=== PATIENT | male | born 1995 ===

== ENCOUNTER 2021-12-13 21:42 | Emergency (ER) | payer BC, SELFPAY ==
--- OUTSIDE RECORDS SUMMARY | 2021-12-13 21:45 | XMS REPORT | Continuity of Care Document ---
:1995 Author Organization [facility] t Address [address] [place] [address] Care Team Providers Name Role Phone No MD, Pcp Primary Care Physician Unavailable LUIS ARMANDO LIN Attending Clinician Unavailable Doctor Unassigned, [place] Attending Clinician Unavailable Ramez Suggs Attending Clinician Chicho Romero MD Attending Clinician CHICHO ROMERO Attending Clinician Unavailable Payers Payer Name Policy Type Policy Number Effective Date Expiration Date Iveth BEAN OPEN ACCESS [id number] 2021 00:00:00 MANAGED CHOICE POS Problems Condition Condition Condition Status Onset Resolution Last Treating Co mments Source Name Details Category Date Date Treatment Clinician Date Laceration Laceration Disease Active U T of muscle of muscle 07-12 Heal th of left of left 00:00: hand hand 00 No known No known Disease Unive rs active active ity of problems problems [facility] Allergies, Adverse Reactions, Alerts Allergy Allergy Status Severity Reaction(s) Onset Inactive Treating Comm ents Source Name Type Date Date Clinician NO KNOWN Drug Active Univers ALLERGIE Class ity of S [facility] Social History Social Habit Start Date Stop Date Quantity Comments Source Exposure to Not sure [facility] [place] [facility] SARS-CoV-2 (event) History of Cigarette Smoker Universi ty of tobacco use [facility] Tobacco use and 2021-07-12 2021-07-12 Smokeless tobacco [facility] [place] [facility] exposure 00:00:00 00:00:00 non-user Alcohol intake 2021-07-12 2021-07-12 [facility] 00:[facility]:00 00:00:00 History [facility] 2018-09-24 2018-09-24 3 University o f Alcohol Frequency 00:00:00 00:00:00 [facility] History [facility] 2018-09-24 2018-09-24 2 University o f Alcohol Std 00:00:00 00:00:00 [facility] History [facility] 2018-09-24 2018-09-24 2 [place] o f Alcohol Binge 00:00:00 00:00:00 [facility] al Branch Sex Assigned At [birth year] [facility] 00:00:00 00:00:00 Smoking Status Start Date Stop Date Source Never smoked tobacco [facility] [place] [facility] Current every day smoker 2019-08-24 00:00:00 Uni versity of [facility] Medications Ordered Filled Start Stop Current Ordering Indication Dosage Frequency Signature Comments Components Source Medication Medication Date Date Medication? Clinician (SIG) Name Name No known No No known [place] medications 07-12 medication He alth 15:33: s 36 methylPREDN Yes [id number] 84mg Take 21 Univers ISolone 5-13 tablets by ity of (MEDROL, 00:00: mouth [place] SYDNEY,) 4 mg 00 SEE-INSTRU Med ical tablets CTIONS. Branch follow package directions methylPREDN 2019-0 Yes [id number] 84mg Take 21 Univers ISolone 5-13 tablets by ity of (MEDROL, 00:00: mouth [place] SYDNEY,) 4 mg 00 SEE-INSTRU Med ical tablets CTIONS. Branch follow package directions methylPREDN 2019-0 Yes [id number] 84mg Take 21 Univers ISolone 5-13 tablets by ity of (MEDROL, 00:00: mouth [place] SYDNEY,) 4 mg 00 SEE-INSTRU Med ical tablets CTIONS. Branch follow package directions diclofenac 2019- 2020- No [id number] 75mg Take 1 Univers 75 mg EC 5-13 06-13 tablet by ity o f tablet 00:00: 04:59 mouth 2 [place] 00 :00 (two) Medical times [place] daily with meals for 30 days. diclofenac 2020- 2020- No [id number] 75mg Take 1 Univers 75 mg EC 5-13 06-13 tablet by ity o f tablet 00:00: 04:59 mouth 2 [place] 00 :00 (two) Medical times [place] daily with meals for 30 days. hydrocortis Yes [id number] 25mg Insert 1 Univers one 6-13 Suppositor ity of (ANUSOL-HC) 00:00: y [place] 25 mg 00 rectum 2 Medical suppository (two) Branch times daily. phenyleph-m Yes [id number] Apply to Univers in 13 affected ity of oil-petrola 00:00: area twice [place] nadia 00 a day Medical (PREPARATIO Branch N H) 0.25-14-74. 9 % Oint docusate 20190 Yes [id number] 100mg Take 1 Un doug (COLACE) 6-13 capsule by ity o f 100 mg 00:00: mouth [place] capsule 00 daily. Medical Branch hydrocortis Yes [id number] 25mg Insert 1 Univers one 6-13 Suppositor ity of (ANUSOL-HC) 00:00: y [place] 25 mg 00 rectum 2 Medical suppository (two) Branch times daily. phenyleph-m Yes [id number] Apply to Univers in 6 affected ity of oil-petrola 00:00: area twice [place] nadia 00 a day Medical (PREPARATIO Branch N H) 0.25-14-74. 9 % Oint docusate Yes [id number] 100mg Take 1 Un doug (COLACE) 6-13 capsule by ity o f 100 mg 00:00: mouth [place] capsule 00 daily. Medical Branch hydrocortis Yes [id number] 25mg Insert 1 Univers one 6-13 Suppositor ity of (ANUSOL-HC) 00:00: y [place] 25 mg 00 rectum 2 Medical suppository (two) Branch times daily. phenyleph-m Yes [id number] Apply to Univers in 13 affected ity of [place] 00:00: area twice [place] nadia 00 a day Medical (PREPARATIO Branch N H) 0.25-14-74. 9 % Oint docusate 0 Yes [id number] 100mg Take 1 Un doug (COLACE) 6-13 capsule by ity o f 100 mg 00:00: mouth [place] capsule 00 daily. Medical Branch ciprofloxac Yes 500mg Take 1 Tab Univers in HCl 3-21 by mouth ity of (CIPRO) 500 00:00: every 12 [place] mg tablet 00 (twelve) Medica l hours. Branch ciprofloxac Yes 500mg Take 1 Tab Univers in HCl 3-21 by mouth ity of (CIPRO) 500 00:00: every 12 [place] mg tablet 00 (twelve) Medica l hours. Branch ciprofloxac 2016-0 Yes 500mg Take 1 Tab Univers in HCl 3-21 by mouth ity of (CIPRO) 500 00:00: every 12 [place] mg tablet 00 (twelve) Medica l hours. Branch Vital Signs Vital Name Observation Time Observation Value Comments Source Systolic blood 2019-08-24 20:49:00 120 mm[Hg] Univer sity [facility] Diastolic blood 2019-08-24 20:49:00 76 [facility]Hg[facility] 2019-08-24 20:49:00 77 /min [facility] Body height 2019-08-24 20:49:00 180.3 cm [facility] Body weight 2019-08-24 20:49:00 108.863 kg [facility] BMI 2019-08-24 20:49:00 33.47 kg/m2 [facility] Procedures Procedure Date / Time Performed Performing Clinician [facility] e CLINIC RECORD / SMR 2020-11-27 05:01:00 [facility] Start End Encounter Admission Attending Care Care Encounter Source Date/Time Date/Time Type Type Clinicians Facility Department ID 2021-07-12 Outpatient LUIS ARMANDO LIN [facility] [id number] [id number] [place] 09:24:49 [id number] Health 2021-07-12 2021-07-12 Office Luis Armando Lin [facility] [id number] [place] 13:30:00 14:37:03 Visit ORTHO AND [id number] Health SPINE [id number] MEDICAL [id number] PLA[place] 2 2020-11-27 2020-11-27 Orders Doctor JOHNSON [id number] Univers 00:00:00 00:00:00 Only Unassigned, DEEPIKA [id number] ity of [place] [facility] [id number] Francois as [id number] [address] 2019-08-24 2019-08-24 Office Ramez Purcell [facility] [id number] Univers 15:42:34 15:57:34 Visit Chicho Romero [facility] [id number] it of Surgical [id number] Francois as Specialti [id number] [facility] [address] [facility] 2019-08-24 2019-08-24 [facility] [id number] Univers 15:45:00 15:45:00 CHICHO [id number] [facility] 2019-08-24 2019-08-24 [facility] [id number] Univers 15:45:00 15:45:00 CHICHO [facility] Results This patient has no known results.
[2021-12-13 22:32] LABS: Absolute Lymphocytes (CBC) 3.1 K/uL (0.7-4.9); MCV 84.6 fL (80-100); MPV 8.2 fL (7.6-11.3); RBC Red Blood Cell Count 4.61 M/uL (4.33-5.43)
[2021-12-13 22:51] LABS: Potassium 3.4 mmol/L (3.5-5.1); Troponin High Sensitivity 3.7 pg/mL (<58.9)
[2021-12-13] MEDS ORDERED: ACETAMINOPHEN 500 MG TAB ONE (22:54)
[2021-12-13 23:34] LABS: Protime INR 1.08
[2021-12-14 00:14] LABS: ALT/SGPT 23 U/L (12-78); AST/SGOT 12 U/L (15-37); Albumin 3.8 g/dL (3.4-5.0); Alkaline Phosphatase 55 U/L (45-117); Bilirubin Total 0.2 mg/dL (0.2-1.0); Creatine Phosphokinase 294 U/L (39-308); Lipase 180 U/L (73-393); Magnesium 2.1 mg/dL (1.8-2.4); Protein, Total 6.9 g/dL (6.4-8.2); Thyroid Stimulating Hormone 0.961 uIU/mL (0.360-3.740)
[2021-12-14 00:22] LABS: Bilirubin Direct < 0.1 mg/dL (0-0.2); CKMB Creatine Kinase MB < 1.0 ng/mL (1.0-3.6)
[2021-12-14 01:47] LABS: Urine Blood Negative (Negative); Urine Glucose Negative (Negative); Urine Protein Negative (Negative); Urine pH 6.5 (5.0-7.0)
--- NOTE | 2021-12-14 01:58 | EDPHYS ---
Physician Documentation [facility] Name: Alf Arrieta Age: 26 yrs Sex: Male : 1995 Arrival Date: 12/13/2021 Time: 21:45 Bed 11 Private MD: MERCEDES Physician Maycol Kern HPI: 12/14 00:28 This 26 yrs old Male presents to ER via Wheelchair with complaints of Chest Pain. kb 00:28 The patient presents with a history of heart racing. kb 00:32 Context: The symptoms occur at rest. Onset: The symptoms/episode began/occurred just kb prior to arrival. Duration: The patient or guardian reports multiple episodes, that have now resolved. Modifying factors: The symptoms are aggravated by nothing. The symptoms are alleviated by nothing. Associated signs and symptoms: Pertinent positives: anxiety, chest pain, near-syncope. Severity of symptoms: At their worst the symptoms were moderate in the emergency department the symptoms are unchanged. The patient has not experienced similar symptoms in the past. The patient has not recently seen a physician. Spouse reports patient was sitting at home when he had a sudden onset of palpitations and shortness of breath. States it lasted for few minutes and then went away. Patient was calming down and then it happened again, lasted a few minutes and resolved again. Patient now reports fatigue, headache, soreness. States he has been under a lot of stress so this could be related to anxiety. Also states that father has history of SVT. No personal medical history.. Historical: - Allergies: 12/13 22:09 No Known Allergies; as6 - Home Meds: 22:09 None [Active]; as6 - PMHx: 22:09 None; as6 - PSHx: 22:09 hand; Appendectomy; as6 - Immunization history:: Client reports having NOT received the Covid vaccine. - Social history:: Smoking status: Patient denies any tobacco usage or history of. ROS: 12/14 00:27 Constitutional: Negative for fever, chills, and weight loss. kb Cardiovascular: Positive for chest pain, palpitations, Negative for edema, orthopnea, paroxysmal nocturnal dyspnea. Respiratory: Positive for shortness of breath, Negative for cough, dyspnea on exertion, hemoptysis, orthopnea, pleurisy, sputum production, wheezing. All other systems are negative. Exam: 00:27 Constitutional: This is a well developed, well nourished patient who is awake, alert, kb and in no acute distress. Head/Face: Normocephalic, atraumatic. ENT: Moist Mucous membranes Cardiovascular: Regular rate and rhythm with a normal S1 and S2. No gallops, murmurs, or rubs. No pulse deficits. Respiratory: Respirations even and unlabored. No increased work of breathing. Talking in full sentences Abdomen/GI: Soft, non-tender. No distention Skin: Warm, dry with normal turgor. Normal color. MS/ Extremity: Pulses equal, no cyanosis. Neurovascular intact. Full, normal range of motion. Neuro: Awake and alert, GCS 15, oriented to person, place, time, and situation. Moves all extremities. Normal gait. Psych: Awake, alert, with orientation to person, place and time. Behavior, mood, and affect are within normal limits. Vital Signs: 12/13 22:06 BP 118 / 74; Pulse 93; Resp 18 S; Temp 98.2(O); Pulse Ox 97% on R/A; Weight 99.79 kg as6 (R); Height 5 ft. 11 in. (180.34 cm) (R); Pain 6/10; 22:40 BP 99 / 56; Pulse 83; Resp 18; Pulse Ox 97% on R/A; tw5 12/14 01:22 BP 125 / 90; Pulse 89; Resp 18; Pulse Ox 99% on R/A; Pain 3/10; tw5 12/13 22:06 Body Mass Index 30.68 (99.79 kg, 180.34 cm) as6 MDM: 12/13 22:20 Patient medically screened. kb 12/14 00:27 Data reviewed: vital signs, nurses notes. Data interpreted: Pulse oximetry: on room air kb is 97 %. Interpretation: normal. Counseling: I had a detailed discussion with the patient and/or guardian regarding: the historical points, exam findings, and any diagnostic results supporting the discharge/admit diagnosis, lab results, radiology results, the need for outpatient follow up, a family practitioner, to return to the emergency department if symptoms worsen or persist or if there are any questions or concerns that arise at home. 00:47 Transition of care: After a detail discussion of the patient's case, care is kb transferred to Maycol Kern MD. 01:34 Differential diagnosis: abnormal EKG, acute pericarditis, cholecystitis, tomer costochondritis, esophagitis, herpes zoster, hiatal hernia, myocarditis, peptic ulcer disease, pulmonary embolus, stable angina, thoracic aortic disection, unstable angina. HEART Score: History: Slightly Suspicious (0), ECG: Normal (0), Age: < or = 45 years (0), Risk Factors: No Risk Factors Known (0), Troponin: < or = 1 x Normal Limit (0), Total Score = 99. The patient's deep vein thrombosis risk score was calculated as follows: Total Score: 0. This patient was found to be at low risk for a deep vein thrombosis by using the Well's assessment criteria. The patient's pulmonary embolism risk score was calculated as follows: Total Score: 0-2 points. This patient was found to be at low risk for a pulmonary embolism by using the Well's assessment criteria. JOHNATHON Risk Score: 1 - Recent [<24hrs] Severe Angina. 12/13 22:10 Order name: Basic Metabolic Panel; Complete Time: 22:56 12/13 22:10 Order name: CBC with Diff; Complete Time: 22:49 12/13 22:10 Order name: PT-INR; Complete Time: 23:36 12/13 22:10 Order name: Troponin HS; Complete Time: 22:56 12/13 22:20 Order name: CPK; Complete Time: 00:23 kb 12/13 22:20 Order name: Ckmb; Complete Time: 00:23 kb 12/13 22:10 Order name: XRAY Chest (1 view); Complete Time: 13:32 12/13 22:20 Order name: Hepatic Function; Complete Time: 00:23 kb 12/13 22:20 Order name: Lipase; Complete Time: 00:23 kb 12/13 22:20 Order name: Magnesium; Complete Time: 00:23 kb 12/13 22:20 Order name: Ptt, Activated; Complete Time: 00:21 kb 12/13 22:20 Order name: TSH; Complete Time: 00:23 kb 12/14 00:29 Order name: D-Dimer; Complete Time: 01:34 kb 12/14 01:47 Order name: Urine Dipstick-Ancillary; Complete Time: 01:57 EDMS 12/13 22:10 Order name: EKG; Complete Time: 22:11 12/13 22:10 Order name: Cardiac monitoring 12/13 22:10 Order name: EKG - Nurse/Tech; Complete Time: 22:17 12/13 22:10 Order name: IV Saline Lock; Complete Time: 22:17 12/13 22:10 Order name: Labs collected and sent; Complete Time: 22:17 12/13 22:10 Order name: O2 Per Protocol 12/13 22:10 Order name: O2 Sat Monitoring 12/13 22:20 Order name: NPO; Complete Time: 22:42 kb 12/13 22:20 Order name: Urine Dipstick-Ancillary (obtain specimen); Complete Time: 01:36 kb Administered Medications: 12/13 22:46 Drug: Tylenol 1000 mg Route: PO; 12/14 02:16 Follow up: Response: No adverse reaction 02:16 Drug: Potassium Effervescent Tablet 25 mEq Route: PO; 02:16 Follow up: Response: No adverse reaction Disposition: 01:36 Co-signature as Attending Physician, Maycol Kern MD I agree with the assessment and tomer plan of care. Disposition Summary: 12/14/21 01:58 Discharge Ordered Location: Home tomer Condition: Stable tomer Diagnosis - Palpitations tomer - Hypokalemia tomer Followup: kb - With: Emergency Department - When: As needed - Reason: Worsening of condition Followup: kb - With: Private Physician - When: 2 - 3 days - Reason: Recheck today's complaints, Continuance of care, Re-evaluation by your physician Discharge Instructions: - Discharge Summary Sheet kb - Nonspecific Chest Pain, Adult, Ohzh-pv-Fdge kb - Palpitations, Dtaa-ce-Njlm kb - Panic Attack, Gxdf-qz-Otll kb - Potassium Content of Foods tomer - Hypokalemia tomer Forms: - Medication Reconciliation Form tomer - Thank You Letter tomer - Antibiotic Education tomer - Prescription Opioid Use tomer Signatures: Dispatcher [employer] EDMS Faustina Guadarrama, RANDALLC AGNIESZKA-Maycol Kemp MD MD cha Wood, Tiffany tw5 Rashel Smalls, RN RN as6
--- NOTE | 2021-12-14 01:58 | ER ---
Nurse's Notes [facility] Name: Alf Arrieta Age: 26 yrs Sex: Male : 1995 Arrival Date: 12/13/2021 Time: 21:45 Bed 11 Private MD: Diagnosis: Palpitations;Hypokalemia Presentation: 12/13 22:06 Chief complaint: Spouse and/or significant other states: "We were sitting on the couch as6 and he stood and and said it felt like he couldn't breath and his heart was beating fast and he passed out on me. I don't know if it was a panic attack or what". Coronavirus screen: At this time, the client does not indicate any symptoms associated with coronavirus-19. Ebola Screen: No symptoms or risks identified at this time. Initial Sepsis Screen: Does the patient meet any 2 criteria? No. Patient's initial sepsis screen is negative. Does the patient have a suspected source of infection? No. Patient's initial sepsis screen is negative. Risk Assessment: Do you want to hurt yourself or someone else? Patient reports no desire to harm self or others. Onset of symptoms was December 13, 2021. 22:06 Method Of Arrival: Wheelchair as6 22:06 Acuity: ENRRIQUE 3 as6 Triage Assessment: 12/14 01:21 General: Appears in no apparent distress. Behavior is calm, cooperative, appropriate tw5 for age. Pain: Pain currently is 3 out of 10 on a pain scale. Historical: - Allergies: 12/13 22:09 No Known Allergies; as6 - Home Meds: 22:09 None [Active]; as6 - PMHx: 22:09 None; as6 - PSHx: 22:09 hand; Appendectomy; as6 - Immunization history:: Client reports having NOT received the Covid vaccine. - Social history:: Smoking status: Patient denies any tobacco usage or history of. Screenin:40 Abuse screen: Denies threats or abuse. Denies injuries from another. Nutritional tw5 screening: No deficits noted. Tuberculosis screening: No symptoms or risk factors identified. Fall Risk None identified. Assessment: 22:40 General: at the bedside reports "It was really weird we were just sitting down tw5 watching TV and he jumped up and said his chest was hurting and he was having a hard time breathing. A couple of minuets passed and he did the same thing, just this time he actually fell to his knees it really scared me.". Pain: Complains of pain in chest Pain does not radiate. Pain began suddenly. Neuro: Level of Consciousness is awake, alert, obeys commands, Oriented to person, place, time, situation. Cardiovascular: Heart tones S1 S2 present. 12/14 01:22 Reassessment: Patient states feeling better. Patient states symptoms have improved. tw5 General: Appears in no apparent distress. 02:17 Reassessment: Patient states feeling better. Patient states symptoms have improved. tw5 Vital Signs: 12/13 22:06 BP 118 / 74; Pulse 93; Resp 18 S; Temp 98.2(O); Pulse Ox 97% on R/A; Weight 99.79 kg as6 (R); Height 5 ft. 11 in. (180.34 cm) (R); Pain 6/10; 22:40 BP 99 / 56; Pulse 83; Resp 18; Pulse Ox 97% on R/A; tw5 12/14 01:22 BP 125 / 90; Pulse 89; Resp 18; Pulse Ox 99% on R/A; Pain 3/10; tw5 12/13 22:06 Body Mass Index 30.68 (99.79 kg, 180.34 cm) as6 ED Course: 12/13 21:45 Patient arrived in ED. bp1 22:09 Triage completed. as6 22:10 Arm band placed on. as6 22:17 EKG completed in triage. Results shown to MD. as6 22:17 Inserted saline lock: 18 gauge in right antecubital area, using aseptic technique. as6 Blood collected. 22:19 Faustina Guadarrama FNP-C is PHCP. kb 22:19 García Sam MD is Attending Physician. kb 22:34 Carmen Ceron is Primary Nurse. tw 22:42 Basic Metabolic Panel Sent. tw 22:42 PT-INR Sent. 22:42 Troponin HS Sent. tw 22:43 TSH Sent. tw 22:43 CPK Sent. tw 22:43 Ckmb Sent. tw 22:43 Hepatic Function Sent. tw 22:43 Lipase Sent. 22:43 Magnesium Sent. tw5 22:43 Ptt, Activated Sent. tw5 22:59 XRAY Chest (1 view) In Process Unspecified. EDMS 12/14 00:56 D-Dimer Sent. tw5 01:21 Placed in gown. Bed in low position. Call light in reach. Side rails up X 1. Pulse ox tw5 on. NIBP on. Door closed. Noise minimized. Moved to private room. Warm blanket given. Verbal reassurance given. 01:21 No provider procedures requiring assistance completed. Patient maintains SpO2 tw5 saturation greater than 95% on room air. 01:34 Attending Physician role handed off by García Sam MD cha 01:34 Maycol Kern MD is Attending Physician. [facility] 02:16 IV discontinued, intact, bleeding controlled, No redness/swelling at site. Pressure tw5 dressing applied. Administered Medications: 12/13 22:46 Drug: Tylenol 1000 mg Route: PO; tw5 12/14 02:16 Follow up: Response: No adverse reaction tw5 02:16 Drug: Potassium Effervescent Tablet 25 mEq Route: PO; tw5 02:16 Follow up: Response: No adverse reaction tw5 Medication: 02:16 VIS not applicable for this client. tw5 Outcome: 01:58 Discharge ordered by . [facility] 02:16 Discharged to home ambulatory. tw 02:16 Condition: good 02:16 Discharge instructions given to patient, Instructed on discharge instructions, follow up and referral plans. Demonstrated understanding of instructions, follow-up care. 02:17 Patient left the ED. tw5 Signatures: Dispatcher [employer] [facility] Faustina Guadarrama, COAT JOINER LOCKSTITCH-C COAT JOINER LOCKSTITCH-Ckb Maycol Kern MD MD cha [place]ia[place], Brittany bp1 Wood, Tiffany tw5 Rashel Smalls, RN RN as6
[2021-12-14] MEDS ORDERED: POTASSIUM 25 MEQ EFFERV TAB ONE (02:11)
--- NOTE | 2021-12-14 04:15 | RAD REPORT ---
EXAM DESCRIPTION: RAD - Chest Single View - 12/13/2021 10:57 pm CLINICAL HISTORY: CHEST PAIN Chest pain. COMPARISON: No comparisons FINDINGS: Portable technique limits examination quality. Mildly prominent interstitial lung markings could indicate interstitial infection/viral infection or mild interstitial pulmonary edema. The heart is normal in size. No displaced fractures.
[2021-12-14 05:27] VITALS: TEMP 98.2
[2021-12-14 05:46] VITALS: BP 125/90; O2SAT 99
--- NOTE | 2021-12-14 09:19 | EKG ---
Test Date: 2021-12-13 Test Time: 22:08:43 Beef Grinder: HANNAH MEASUREMENT RESULTS: Intervals: Rate: 87 TN: 166 QRSD: 88 QT: 366 QTc: 440 [place]: P: 59 TN: 166 QRS: 137 T: 64 INTERPRETIVE STATEMENTS: Normal sinus rhythm Right axis deviation Pulmonary disease pattern Abnormal ECG No previous ECG available for comparison Electronically Signed On 12-14-21 09:18:32 CDT by Andrade Rowe
== END 2021-12-14 02:17 | disposition home or self-care (01) ==
LOC: ER 21:42
DX: R00.2 Palpitations (principal); E87.6 Hypokalemia; R07.9 Chest pain, unspecified
CPT/HCPCS: 36415; 71045; 80048; 80076; 81003; 82550; 82553; 83690; 83735; 84443; 84484; 85025; 85379; 85610; 85730; 93005; 99284